=== PATIENT | female | born 1960 | race Caucasian/White ===

== ENCOUNTER → 2017-05-04 | Day surgery (SDC) | payer OTHER ==
[~2017-05-04] VITALS: Ht 169.6 cm; Wt 65.4 kg
[~2017-05-04] MED LIST: Bupivacaine-MPF 0.5% 30 mL Inj INFILTRATE ONE; CALC600T12 PO; CeFAZolin Inj 2 GM in IV Premix 1 EACH IV SCH; Clindamycin 900 mg/50 mL D5W IV SCH; Clindamycin 900 mg/50 mL D5W Premix IV ONE; Dexamethasone 4 mg/mL Inj IVPUSH PRN; EPHEDrine Sulfate 50 mg/mL Inj IVPUSH PRN; GLUC-123 PO; HYDR28.311 RC; HYDROmorphone 1 mg/mL Inj IVPUSH PRN; Lactated Ringer's 1,000 ML IV ONE; Lactated Ringer's 1,000 ML IV SCH; Lactated Ringer's 500 ML IV PRN; MELA1TAB28 PO; METH454P2 PO; MULT-1018 PO; MetoCLOpramide 5 mg/mL 2 mL Inj IVPUSH PRN; Ondansetron 2 mg/mL 2 mL Inj IVPUSH PRN; Phenylephrine 10,000 mCg/mL Inj IVPUSH PRN; fentaNYL-PF 50 mCg/mL 2 mL Inj IVPUSH PRN; oxyCODONE-Acetamin 5-325 mg Tablet PO PRN
[2017-05-04] MEDS: Lactated Ringer's 1,000 ML IV SCH ×2 (05:52→07:29)
[2017-05-04 06:04] VITALS: BP 121/80; PULSE 53; RESP 16; O2SAT 97
--- NOTE | 2017-05-04 07:35 | PCM.HPANE ---
Patient Data Date of Service: May 04, 2017 Surgeon Admitting Provider: Attending Provider:Chirag Fernandez MD Primary Care Physician:Danya Bell MD Other Provider:Tena Lam Anesthesia Reason for Visit Left Ring Finger Trigger Finger Ht/WT & BMI Height (Feet): 5 Height (Inches): 6.75 Weight (Kilograms): 65.4 Body Mass Index 22.00 Allergies Coded Allergies: ampicillin (Verified Allergy, Severe, severe total body rash, 05/02/17) Past Anesthesia History Anesthesia History: Denies:: Abnormal Airway, Anesthesia Reactions (blood pressure dropped very low after uterine artery embolization), Difficult Intubation, Fam Anesthesia Reaction, Fam Malignant Hypertherm, Malignant Hyperthermia Diabetes History Hx Diabetes?: No MRSA MRSA: No Medications Hypertension Medication: No Home Meds Incl Beta Carleen: No Reported Medications Multivitamin (Multi Vitamin Daily)1 Each Tablet1 Each PO DAILY 30 Days Ref 0 05/02/17 Hydrocortisone (Proctosol-Hc)28.35 Gm Cream.appl28.35 Gm RC DIRECTED PRN hemorrids 05/02/17 Melatonin/Pyridoxine HCl (B6) (Melatonin 3 mg Tablet)1 Each Tablet1-2 Each PO HS 05/02/17 Gluc/Naun-MSM#2/C/D3/Jadon/Born (Qqbsygsopz-Yaqklgopalr-ELK Tab)1 Each Tablet1 Each PO BID 05/02/17 Methylcellulose (with Sugar) (Fiber Therapy Powder)454 Gm Scbznt130 Gm PO DAILY 05/02/17 Calcium Carbonate (Calcium)600 Mg Urpbhg220 Mg PO BID 05/02/17 Discontinued Reported Medications Meloxicam 7.5 Mg Tablet7.5 Mg PO WEEKLY 30 Days Ref 0 06/27/16 Aromatic Cascara Fluid Extract (Cascara [place])1 Ml Fl.extract1 Ml PO DAILY 06/27/16 Cholecalciferol (Vitamin D3) (Vitamin D3)1,000 Unit Tab.chew1,000-2,000 Unit PO DAILY 05/09/16 Melatonin/Pyridoxine (Melatonin 3 mg Tablet)1 Each Tablet1 Each PO DAILY 05/09/16 Sennosides (Natural Laxative)25 Mg Isntop79 Mg PO PRN For Constipation 05/09/16 Glucosamine/MSM/Chondroitin A (Glucosamine Chondroit MSM Tab)1 Each Tablet2 Each PO DAILY 05/09/16 Calcium Polycarbophil (Fiber-Caps)625 Mg Uqcpmn648 Mg PO DAILY 05/09/16 Calcium Carb&Cit/Mag12/Vit D3 (Calcium 500 mg Tablet)1 Each Tablet1 Each PO DAILY 05/09/16 History History of ENT Problems?: No HEENT History: Denies:: Abnormal Airway Cataracts Difficult Intubation Dysphagia Hearing Problem Sinus Problem TMJ Denture Type: None Teeth Condition: Within Normal Limits Hx of Heart Problems?: No Cardiovascular History: Denies:: AICD Abdominal Aortic Aneurism Atrial Fibrillation Chest Pain Congestive Heart Failure Edema Heart Murmur Hypertension Irregular Heartbeat Pacemaker Valvular Heart Disease Hx of Respiratory Problem?: Yes Respiratory History: Positive for:: Pneumonia (as infant) Denies:: Asthma COPD Chest Surgery Cough Dyspnea Emphysema Hemoptysis Oxygen Administration Pulmonary Embolism Tuberculosis Use of C-PAP Machine Use of Inhalers / NEBS Hx Neurologic Problems?: No Neurological History: Denies:: CVA Dementia Dizziness Headaches Multiple Sclerosis Parkinson's Disease Seizures TIA Hx of GI Problems?: No Hx of Problems?: No Genitourinary History: Denies:: Kidney Stones Urinary Tract Infection Female Hx: Denies:: Currently (POST MENOPAUSE) Endometriosis (hx endometrial ablation) Pelvic Inflammatory (Uterine fibroids) Problems with Breasts? Skin History: Denies:: History Skin Disorders? Pressure Ulcers Hx Musculoskeletal Problems?: Yes Musculoskeletal History: Positive for:: Musculoskeletal Trauma (right wrist cyst, right ring trigger finger, lt trigger finger) Osteoarthritis Denies:: Back Injury Degenerative Joint Joint Replacement Rheumatoid Arthritis Systemic Lupus Hx of Psycho/Social Problems?: No Hx Surgeries?: Yes (uterine artery embolization, tubal, endometrial ablation, hemorrhoid, ) Hx Any Other Health Problems?: Yes Other History: Positive for:: Hospitalization (uterine ablation for fibroids) Denies:: Cancer Endocrine Disease Thyroid Disease History Blood Transfusions: Positive for:: Accept Blood Products? Denies:: Blood Transfuse Reaction Blood Transfusions Hx Diabetes: No Hx Alcohol Use: Yes (DAILY WINE)Alcoholic Drinks Per Day: 2 glasses of wine a dayHx Substance Use: Yes (ocassionally vaporizes) Smoking Status: Never Smoker Have You Smoked inLast 12 mo: No Stop/Bang Treated for Sleep Apnea?: No Do You Have a CPAP Machine?: No S-Snoring: Do You Snore Loudly: No T-Tired: feel tired, fatigued: No O-Obsered: Observed not breath: No P-Blood Pressure: treated: No B- Body Mass Index > 35 kg/m2: No A- Age over 50: Yes N- Neck Large Circumference: No G- Gender Male: No LISA Total Score: 1 Risk Assessment Category Category 1A: Patient has history of documented sleep apnea, and HAS NOT received any narcotic, sedative or anesthesia administration during this stay. Category 1B: Patient has history of documented sleep apnea, and HAS received any narcotic , sedative or anesthesia administration during this stay Category 2: Patient has SUSPECTED Obstructive Sleep Apnea, and HAS received any narcotic , sedative or anesthesia administration during this stay. Category 3: Patient has SUSPECTED Obstructive Sleep Apnea and HAS NOT received narcotic, sedative or anesthesia administration during this stay. Category 4: Outpatient in Procedural Areas with known sleep apnea or who screen positive for High Risk via the STOP/BANG questionnaire. Exam Exam Vital Signs Vital Signs Date Time Temp Pulse Resp B/P Pulse Ox O2 Delivery O2 Flow Rate FiO2 05/04/17 06:04 36.2 53 16 121/80 97 Room Air General Appearance: Alert, Oriented X3, Cooperative HEENT/AIRWAY: MP 2 Lungs: Clear to Auscultation Heart: Exam Unremarkable Meds/Labs/Diagnostics Admission Meds Current Medications Lactated Ringer's (Lr) 1,000 ml @ 120 mls/hr Q8H20M IV Last administered on t 05:52; Start 05/04/17 at 05:00; Stop 05/04/17 at 13:19 Plan Impression Patient chart reviewed, patient interviewed and anesthestic plan with risks, benefits, and alternatives discussed, and informed consent obtained. NPO per Anesth. Guidelines: Yes ASA Physical Status: ASA1 Normal Healthy Anesthetic Plan: MAC Bene/Risks/Altern/Consents: Yes HP Complete Prior to Induction: Yes Prince Hardy MD May 04, 2017 07:35
[2017-05-04 08:26] VITALS: BP 100/66; PULSE 51; RESP 16; O2SAT 100
[2017-05-04 08:46] VITALS: BP 114/72; PULSE 52; RESP 16; O2SAT 100
--- NOTE | 2017-05-04 09:27 | PCM.ANEP1 ---
Post Anesthesia PACU Phase 1 Assessment Date of Service: May 04, 2017 Vital Signs Vital Signs Date Time Temp Pulse Resp B/P Pulse Ox O2 Delivery O2 Flow Rate FiO2 05/04/17 08:46 52 16 114/72 100 Room Air 05/04/17 08:26 36.2 51 16 100/66 100 Room Air 05/04/17 06:04 36.2 53 16 121/80 97 Room Air Anesthetic Administered: MAC Level of Alertness: Awake, talking Pain: No Nausea or Vomiting: No CV Function & Hydration Stable: Yes Airway Device: Oxygen Delivery: Room Air Lungs: Clear to Auscultation PACU Phase 2 Assessment Patient Instructions Provided: N/A Prince Hardy MD May 04, 2017 09:27
--- NOTE | 2017-05-04 11:34 | OP ---
[address] [address] OPERATIVE REPORT PATIENT: MALIKA ACEVEDO : 1960 MR#: [id number] ADMIT: 05/04/2017 JOB ID: [id number] DATE OF SURGERY: 05/04/2017 PREOPERATIVE DIAGNOSIS(ES): Left ring trigger finger. ICD 10 code M65.342. POSTOPERATIVE DIAGNOSIS(ES): Left ring trigger finger. ICD 10 code M65.342. PROCEDURE: Left ring trigger finger release. CPT code 38835. SURGEON: Chirag Fernandez MD REDUCING SALON ATTENDANT: None. ANESTHESIA: Local block with IV sedation. ESTIMATED BLOOD LOSS: 1 mL DRAINS: None. COMPLICATIONS: None. SPECIMEN: No specimen to pathology. COUNTS: Sponge and needle count correct. INDICATIONS: A 56-year-old female with persistent left ring trigger finger. The patient has failed conservative care. DESCRIPTION OF PROCEDURE: Under adequate IV sedation I cleansed the hand and placed a small amount of 0.5% plain Marcaine in the area of the incision over the proximal portion of the A1 velasquez. A well-padded tourniquet was applied to the left upper extremity. The left arm was prepped and draped in sterile fashion. The arm was elevated, exsanguinated, and the tourniquet inflated to 250 mmHg. Please note that prior to the injectable anesthetic a time-out was called. A small horizontal incision was fashioned over the proximal aspect of the A1 velasquez. The proximal portion of the velasquez was identified and released from a proximal to distal direction just to the edge of the A2 velasquez. Care was taken to protect the A2 velasquez. She also had some fibers of the palmar velasquez that was incised proximally. Care was taken to protect surrounding neurovascular structures. The finger was placed through a range of motion and there were no tendon nodules noted on the flexor tendons. There was no residual triggering noted. After tourniquet was released, minimal hemostasis required. Skin was reapproximated with interrupted horizontal mattress sutures of 4-0 nylon. Xeroform dry sterile dressings were applied. The patient was taken to recovery room in stable condition. Sponge and needle count correct. No complications. PLAN: The patient will be seen in the office in two weeks for suture removal. She should keep her dressing clean and dry. She has been encouraged to do gentle range of motion to the fingers. CC: [facility]
== END | disposition home or self-care (01) ==
LOC: SAS 05:44
PROVIDERS: ATTEND Orthopaedic Surgery
DX: M65.342 Trigger finger, left ring finger (principal); E78.5 Hyperlipidemia, unspecified; E78.00 Pure hypercholesterolemia, unspecified; E80.4 Gilbert syndrome
CPT/HCPCS: 26055; J3490; J7120